=== PATIENT | male | born 2000 | race Caucasian/White ===

== ENCOUNTER 2022-04-16 13:44 | Emergency (ER) | payer SELFPAY ==
[2022-04-16 14:04] VITALS: BP 120/73; PULSE 74; RESP 20; TEMP 36.4; O2SAT 100; BMI 23.8
== END 2022-04-16 14:40 | disposition left against medical advice (07) ==
PROVIDERS: Emergency Provider Emergency Medicine
DX: L50.9 Urticaria, unspecified (principal)
CPT/HCPCS: 99281